=== PATIENT | male | born 1955 | race Caucasian/White ===

== ENCOUNTER → 2020-02-23 17:16 | Outpatient (CLI) | payer MEDICARE, SELFPAY ==
[2020-02-23 18:15] LABS: Prostate Specific Ag Screen 0.8 ng/ml (0.0-4.0)
[2020-02-28 09:42] LABS: Testosterone, Total, LC/MS 287.5 ng/dL (264.0-916.0); Testosterone,Free 4.7 pg/mL (6.6-18.1)
== END ==
PROVIDERS: Visit Provider Family Medicine
DX: R53.83 Other fatigue (principal); Z12.5 Encounter for screening for malignant neoplasm of prostate
CPT/HCPCS: 84402; 84403; G0103